=== PATIENT | female | born 1975 | race American Indian/Alaskan Native ===

== ENCOUNTER 2017-06-22 14:34 | Emergency (ER) | payer MEDICAID ==
[2017-06-22] MEDS ORDERED: LORazepam 2 MG/ML SDV IVPUSH ONE (14:53)
[2017-06-22] MEDS ORDERED: Sodium Chloride 0.9% 1,000 ML IV SCH (15:00)
[2017-06-22] MEDS ORDERED: LORazepam 0.5 MG Tab PO ONE (16:33)
[2017-06-22] MEDS ORDERED: Ketorolac 10 MG Tab PO ONE (16:33)
[2017-06-22] MEDS ORDERED: Alum Hydrox/Mag Hydrox/Simeth 15 ML, Lidocaine 2% 15 ML PO ONE ×2 (16:54)
[2017-06-22] MEDS ORDERED: Ondansetron 4 MG Tab.DIS PO ONE (17:28)
[2017-06-22] MEDS ORDERED: Pantoprazole 40 MG Tab.CR ONE (17:40)
--- NOTE | 2017-06-22 17:51 | EDM.PDOC ---
ED HPI GENERAL MEDICAL PROBLEM - General Chief Complaint: Abdominal Pain Stated Complaint: [facility] Time Seen by Provider: 06/22/17 14:50 Source of Information: Reports: Patient, EMS History Limitations: Reports: No Limitations - History of Present Illness INITIAL COMMENTS - FREE TEXT/NARRATIVE: [place] is [place] the [place] today and she was at court and had like a panic attack this pm. Onset: Today Duration: Hour(s): Location: Reports: Abdomen, Other (pt was hyperventilatind and she was nauseated. ) Associated Symptoms: Reports: No Other Symptoms abd Pain Score (Numeric/FACES): 6 - Related Data Allergies Allergy/AdvReac Type Severity Reaction Status Date / Time sumatriptan [From Imitrex] Allergy Difficulty Verified 06/22/17 14:44 Breathing Home Meds: Home Meds Gabapentin [Neurontin] 400 06/22/17 [History] Methadone 5 06/22/17 [History] lamoTRIgine [LaMICtal] 150 06/22/17 [History] Past Medical History [employer] History: Reports: Psychiatric History: Reports: Addiction, Anxiety, Bipolar, Depression, Psych Hospitalization(s) - Infectious Disease History Infectious Disease History: Reports: Hepatitis C - Past Surgical History GI Surgical History: Reports: Cholecystectomy Female Surgical History: Reports: Oophorectomy Social & Family History - Tobacco Use Smoking Status *Q: Current Every Day Smoker Years of Tobacco use: 15 Packs/Tins Daily: 1 - Caffeine Use Caffeine Use: Reports: Coffee ED ROS GENERAL - Review of Systems Review Of Systems: See Below Constitutional: Reports: No Symptoms HEENT: Reports: No Symptoms Respiratory: Reports: No Symptoms Cardiovascular: Reports: Other ( Pt had rt sided chest pain. It hurt when she took a deep breath. ) Endocrine: Reports: No Symptoms GI/Abdominal: Reports: Abdominal Pain, Nausea, Other ( Pt has not vomited since she has been here. ) : Reports: No Symptoms Musculoskeletal: Reports: No Symptoms Skin: Reports: No Symptoms Neurological: Reports: No Symptoms ED EXAM, GI/ABD - Physical Exam Exam: See Below Text/Narrative:: pt arrived talking about pain in the rt lower chest and rt side of the abdoman. She has a history of constipations. She did have a large bm yesterday. Exam Limited By: No Limitations General Appearance: Alert, Other (pt was very anxious and hyperventilating. ) Ears: Normal TMs Nose: Normal Inspection Throat/Mouth: Normal Inspection Head: Atraumatic Neck: Normal Inspection Respiratory/Chest: Other (pt was clearly hyperventilating tonight. ) Cardiovascular: Regular Rate, Rhythm GI/Abdominal Exam: Soft, Other ( mild rt sided tenderness. ) (Female) Exam: Deferred Rectal (Female) Exam: Deferred Back Exam: Normal Inspection Extremities: Normal Inspection Neurological: Alert, Oriented Psychiatric: Anxious, Other (pt admitted to having a panic attack this evening. ) Course - Vital Signs Last Recorded V/S: Last Vital Signs Temp 36.8 C 06/22/17 14:50 Pulse 79 06/22/17 15:53 Resp 16 06/22/17 15:53 BP 116/65 06/22/17 16:34 Pulse Ox 98 06/22/17 16:34 - Orders/Labs/Meds Orders: Active Orders 24 hr Category Date Time Status EKG Documentation Completion [RC] ASDIRECTED Care 06/22/17 14:51 Active Chest 1V Frontal [CR] Stat Exams 06/22/17 14:52 Taken Pantoprazole [ProTONIX] Med 06/23/17 17:27 Once 40 mg PO DAILY ONE Sodium Chloride 0.9% [Normal Saline] 1,000 ml Med 06/22/17 15:00 Active IV ASDIRECTED EKG 12 Lead [EK] Routine Ther 06/22/17 14:51 Ordered Medication Orders Sodium Chloride (Normal Saline) 1,000 mls @ 999 mls/hr IV ASDIRECTED MOUSTAHPA Pantoprazole Sodium (Protonix) 40 mg PO DAILY ONE Stop: 06/23/17 17:28 Last Admin: 06/22/17 17:41 Dose: 40 mg Labs: Laboratory Tests 06/22/17 06/22/17 06/22/17 Range/Units 14:58 14:58 14:58 WBC 7.0 (4.5-11.0) K/uL RBC 4.54 (3.30-5.50) M/uL Hgb 13.9 (12.0-15.0) g/dL Hct 40.4 (36.0-48.0) % MCV 89 (80-98) fL MCH 31 (27-31) pg MCHC 34 (32-36) % Plt Count 189 (150-400) K/uL Neut % (Auto) 75 H (36-66) % Lymph % (Auto) 20 L (24-44) % [place] % (Auto) 4 (2-6) % Eos % (Auto) 0 L (2-4) % Baso % (Auto) 0 (0-1) % Sodium 138 L (140-148) mmol/L Potassium 5.0 (3.6-5.2) mmol/L Chloride 102 (100-108) mmol/L Carbon Dioxide 28 (21-32) mmol/L Anion Gap 13.0 (5.0-14.0) mmol/L BUN 10 (7-18) mg/dL Creatinine 1.0 (0.6-1.0) mg/dL Est Cr Clr Drug Dosing 70.01 mL/min Estimated GFR (MDRD) > 60 (>60) Glucose 129 H (74-106) mg/dL Calcium 9.4 (8.5-10.1) mg/dL Total Bilirubin 0.5 (0.2-1.0) mg/dL AST 11 L (15-37) U/L ALT 29 (12-78) U/L Alkaline Phosphatase 76 (46-116) U/L Troponin I (0.000-0.056) ng/mL Total Protein 7.7 (6.4-8.2) g/dL Albumin 3.9 (3.4-5.0) g/dL Globulin 3.8 H (2.3-3.5) g/dL Albumin/Globulin Ratio 1.0 L (1.2-2.2) Lipase 85 (73-393) U/L Urine Color Urine Appearance Urine pH (4.5-8.0) Ur Specific [place] (1.008-1.030) Urine Protein (NEGATIVE) mg/dL Urine Glucose (UA) (NEGATIVE) mg/dL Urine Ketones (NEGATIVE) mg/dL Urine Occult Blood (NEGATIVE) Urine Nitrite (NEGATIVE) Urine Bilirubin (NEGATIVE) Urine Urobilinogen (NORMAL) mg/dL Ur Leukocyte Esterase (NEGATIVE) Urine RBC (0-5) Urine WBC (0-5) Ur Epithelial Cells Amorphous Sediment Urine Bacteria Urine Mucus Urine HCG, Qual 06/22/17 06/22/17 06/22/17 Range/Units 15:46 15:46 16:48 WBC (4.5-11.0) K/uL RBC (3.30-5.50) M/uL Hgb (12.0-15.0) g/dL Hct (36.0-48.0) % MCV (80-98) fL MCH (27-31) pg MCHC (32-36) % Plt Count (150-400) K/uL Neut % (Auto) (36-66) % Lymph % (Auto) (24-44) % [place] % (Auto) (2-6) % Eos % (Auto) (2-4) % Baso % (Auto) (0-1) % Sodium (140-148) mmol/L Potassium (3.6-5.2) mmol/L Chloride (100-108) mmol/L Carbon Dioxide (21-32) mmol/L Anion Gap (5.0-14.0) mmol/L BUN (7-18) mg/dL Creatinine (0.6-1.0) mg/dL Est Cr Clr Drug Dosing mL/min Estimated GFR (MDRD) (>60) Glucose (74-106) mg/dL Calcium (8.5-10.1) mg/dL Total Bilirubin (0.2-1.0) mg/dL AST (15-37) U/L ALT (12-78) U/L Alkaline Phosphatase (46-116) U/L Troponin I < 0.017 (0.000-0.056) ng/mL Total Protein (6.4-8.2) g/dL Albumin (3.4-5.0) g/dL Globulin (2.3-3.5) g/dL Albumin/Globulin Ratio (1.2-2.2) Lipase (73-393) U/L Urine Color Yellow Urine Appearance Clear Urine pH 7.0 (4.5-8.0) Ur Specific [place] 1.010 (1.008-1.030) Urine Protein Negative (NEGATIVE) mg/dL Urine Glucose (UA) Normal (NEGATIVE) mg/dL Urine Ketones Negative (NEGATIVE) mg/dL Urine Occult Blood Negative (NEGATIVE) Urine Nitrite Negative (NEGATIVE) Urine Bilirubin Negative (NEGATIVE) Urine Urobilinogen Normal (NORMAL) mg/dL Ur Leukocyte Esterase Negative (NEGATIVE) Urine RBC Not seen (0-5) Urine WBC 0-5 (0-5) Ur Epithelial Cells Rare Amorphous Sediment Not seen Urine Bacteria Not seen Urine Mucus Not seen Urine HCG, Qual Negative Meds: Medications Generic Name Dose Route Start Last Admin Trade Name Freayse PRN Reason Stop Dose Admin Sodium Chloride 1,000 mls @ 999 mls/hr 06/22/17 15:00 Normal Saline IV ASDIRECTED MOUSTAPHA Pantoprazole Sodium 40 mg 06/23/17 17:27 06/22/17 17:41 Protonix PO 06/23/17 17:28 40 mg DAILY ONE Administration Discontinued Medications Generic Name Dose Route Start Last Admin Trade Name Freq PRN Reason Stop Dose Admin Al Hydroxide/Mg Hydroxide 15 0 ml 06/22/17 16:54 06/22/17 16:57 ml/ Lidocaine HCl 15 ml PO 06/22/17 16:55 15 ml ONETIME ONE Administration Ketorolac Tromethamine 10 mg 06/22/17 16:33 06/22/17 16:39 Toradol PO 06/22/17 16:34 10 mg ONETIME ONE Administration Lorazepam 0.5 mg 06/22/17 14:53 06/22/17 16:34 Ativan IVPUSH 06/22/17 14:54 Not Given ONETIME ONE Lorazepam 0.5 mg 06/22/17 16:33 06/22/17 16:39 Ativan PO 06/22/17 16:34 0.5 mg ONETIME ONE Administration Ondansetron HCl 4 mg 06/22/17 17:28 06/22/17 17:41 Zofran Odt PO 06/22/17 17:29 4 mg ONETIME ONE Administration Pantoprazole Sodium Confirm 06/22/17 17:40 Protonix Administered 06/22/17 17:41 Dose 40 mg .ROUTE .STK-MED ONE - Re-Assessments/Exams Free Text/Narrative Re-Assessment/Exam: 06/22/17 17:52 pt was given zoforan 4 mg, torodol 10mg, ativan,. 5 mg and protonix 40 mg. She is much more relaxed and her nausea is better. Departure - Departure Time of Disposition: 17:54 Disposition: Home, Self-Care 01 Condition: Fair Clinical Impression: Panic attack, Gastric irritation, Constipation - Discharge Information Referrals: PCP,None [Primary Care Provider] - Care Plan Goals: send a bottle of mag citrate home with the pt, prilosec 20mg daily for 10 days , zoforan 4 mg subling as needed for nausea. - My Orders Last 24 Hours: My Active Orders 06/22/17 14:51 EKG Documentation Completion [RC] ASDIRECTED EKG 12 Lead [EK] Routine 06/22/17 14:52 Chest 1V Frontal [CR] Stat 06/22/17 15:00 Sodium Chloride 0.9% [Normal Saline] 1,000 ml IV ASDIRECTED 06/23/17 17:27 Pantoprazole [ProTONIX] 40 mg PO DAILY ONE - Assessment/Plan Last 24 Hours: My Active Orders 06/22/17 14:51 EKG Documentation Completion [RC] ASDIRECTED EKG 12 Lead [EK] Routine 06/22/17 14:52 Chest 1V Frontal [CR] Stat 06/22/17 15:00 Sodium Chloride 0.9% [Normal Saline] 1,000 ml IV ASDIRECTED 06/23/17 17:27 Pantoprazole [ProTONIX] 40 mg PO DAILY ONE
[2017-06-22] MEDS ORDERED: Magnesium Citrate Solution 296 ML Bottle PO ONE (18:02)
[2017-06-22] MEDS ORDERED: Magnesium Citrate Solution 296 ML Bottle ONE (18:05)
[2017-06-23] MEDS ORDERED: Pantoprazole 40 MG Tab.CR PO ONE (17:27)
--- NOTE | 2017-06-25 09:11 | CR ---
Heart size within normal limits. Slight interstitial thickening which may be chronic. No focal consol idation.
== END 2017-06-22 18:27 | disposition home or self-care (01) ==
LOC: JP.ED 14:34
DX: K31.89 Other diseases of stomach and duodenum (principal); K59.00 Constipation, unspecified; F41.0 Panic disorder [episodic paroxysmal anxiety]; F17.210 Nicotine dependence, cigarettes, uncomplicated; Z88.8 Allergy status to other drugs, medicaments and biological substances
CPT/HCPCS: 36415; 71045; 80053; 81001; 81025; 83690; 84484; 85025; 93005; 99284; A9270

== ENCOUNTER 2017-08-17 15:47 | Emergency (ER) | payer MEDICAID | END 2017-08-17 18:29 | disposition left against medical advice (07) | LOC: JP.ED 15:47 | DX: Z53.21 Procedure and treatment not carried out due to patient leaving prior to being seen by health care provider (principal) ==

== ENCOUNTER 2017-08-21 17:27 | Emergency (ER) | payer MEDICAID ==
[2017-08-21] MEDS ORDERED: Sodium Chloride 0.9% 1,000 ML IV SCH (18:30)
--- NOTE | 2017-08-21 18:46 | EDM.PDOC ---
ED HPI GENERAL MEDICAL PROBLEM - General Chief Complaint: Upper Extremity Injury/Pain Stated Complaint: SWEELING IN HANDS AND LEGS AND FEET Time Seen by Provider: 08/21/17 18:00 Source of Information: Reports: Patient History Limitations: Reports: No Limitations - History of Present Illness INITIAL COMMENTS - FREE TEXT/NARRATIVE: 41-year-old female with redness and swelling of the left hand and both lower extremities. Intermittent fevers, hand is painful, there is also significant widespread joint aching and malaise. It's been bothering her for 5 days, she came in to be seen 2 or 3 days ago but the ER was too busy so she left. No shortness of breath, denies chest pain nausea or vomiting. Onset: Gradual (Over the past 5 days) Location: Reports: Upper Extremity, Left, Lower Extremity, Left, Lower Extremity , Right Severity: Moderate Associated Symptoms: Reports: Fever/Chills, Malaise, Other (Diffuse joint pains) Left Hand Pain Score (Numeric/FACES): 8 - Related Data Allergies Allergy/AdvReac Type Severity Reaction Status Date / Time sumatriptan [From Imitrex] Allergy Difficulty Verified 08/21/17 17:57 Breathing Home Meds: Home Meds Gabapentin [Neurontin] 800 tab PO TID 06/22/17 [History] lamoTRIgine [LaMICtal] 150 tab PO DAILY 06/22/17 [History] Buprenorphine HCl/Naloxone HCl [Suboxone 4 mg-1 mg Sl Film] 8 mg SL DAILY [History] Sulfamethoxazole/Trimethoprim [Sulfatrim 800-160 mg/20 ml Yuridia] 20 ml PO BID [History] Past Medical History HEENT History: Reports: Impaired 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: Neurological History: Reports: Seizure Psychiatric History: Reports: Addiction, Anxiety, Bipolar, Depression, Psych Hospitalization(s) - Infectious Disease History Infectious Disease History: Reports: Chicken Pox - Past Surgical History GI Surgical History: Reports: Appendectomy, Cholecystectomy Female Surgical History: Reports: Oophorectomy Musculoskeletal Surgical History: Reports: Other (See Below) Other Musculoskeletal Surgeries/Procedures:: ankle surgery Social & Family History - Tobacco Use Smoking Status *Q: Current Every Day Smoker Years of Tobacco use: 20 Packs/Tins Daily: 0.5 Used Tobacco, but Quit: No Second Hand Smoke Exposure: Yes - Caffeine Use Caffeine Use: Reports: Coffee, Soda, Tea - Recreational Drug Use Recreational Drug Use: Yes Recreational Drug Type: Reports: Marijuana/Hashish Recreational Drug Use Frequency: Socially Review of Systems - Review of Systems Review Of Systems: See Below Constitutional: Reports: Fever Eyes: Reports: No Symptoms Respiratory: Denies: Shortness of Breath Cardiovascular: Denies: Chest Pain GI/Abdominal: Denies: Abdominal Pain, Nausea, Vomiting Musculoskeletal: Reports: Joint Pain Skin: Reports: Erythema Neurological: Denies: Headache ED EXAM, GENERAL - Physical Exam Exam: See Below Exam Limited By: No Limitations General Appearance: Alert, No Apparent Distress Eye Exam: Bilateral Eye: EOMI Head: Atraumatic Respiratory/Chest: No Respiratory Distress, Lungs Clear Cardiovascular: Regular Rate, Rhythm, Tachycardia Extremities: Other (Patient has diffuse swelling and erythema around the left hand to the wrist. Very tender to palpation. She also has erythema of both lower extremities. Numerous excoriations and pock davis in the skin on the extremities. There is also a superficial abrasion on the left forearm near the swollen hand.) Course - Vital Signs Last Recorded V/S: Last Vital Signs Temp 99.0 F 08/21/17 18:09 Pulse 123 H 08/21/17 18:09 Resp 16 08/21/17 18:09 BP 120/76 08/21/17 18:09 Pulse Ox 98 08/21/17 18:09 - Orders/Labs/Meds Orders: Active Orders 24 hr Category Date Time Status Extremity Non Vascular Lt [US] Stat Exams 08/21/17 19:05 Taken CULTURE BLOOD [BC] Urgent Lab 08/21/17 18:28 Ordered CULTURE BLOOD [BC] Urgent Lab 08/21/17 18:35 Ordered DRUG SCREEN, URINE [URCHEM] Stat Lab 08/21/17 18:34 Ordered UA W/MICROSCOPIC [URIN] Urgent Lab 08/21/17 18:34 Ordered Blood Culture x2 Reflex Set [OM.PC] Urgent Oth 08/21/17 18:17 Ordered Labs: Laboratory Tests 08/21/17 08/21/17 08/21/17 Range/Units 18:34 18:34 18:37 WBC 5.7 (4.5-11.0) K/uL RBC 3.92 (3.30-5.50) M/uL Hgb 12.3 (12.0-15.0) g/dL Hct 37.6 (36.0-48.0) % MCV 96 (80-98) fL MCH 31 (27-31) pg MCHC 33 (32-36) % Plt Count 164 (150-400) K/uL Neut % (Auto) 59 (36-66) % Lymph % (Auto) 29 (24-44) % [place] % (Auto) 7 H (2-6) % Eos % (Auto) 5 H (2-4) % Baso % (Auto) 0 (0-1) % Sodium (140-148) mmol/L Potassium (3.6-5.2) mmol/L Chloride (100-108) mmol/L Carbon Dioxide (21-32) mmol/L Anion Gap (5.0-14.0) mmol/L BUN (7-18) mg/dL Creatinine (0.6-1.0) mg/dL Est Cr Clr Drug Dosing mL/min Estimated GFR (MDRD) (>60) Glucose (74-106) mg/dL Calcium (8.5-10.1) mg/dL Total Bilirubin (0.2-1.0) mg/dL AST (15-37) U/L ALT (12-78) U/L Alkaline Phosphatase (46-116) U/L Total Protein (6.4-8.2) g/dL Albumin (3.4-5.0) g/dL Globulin (2.3-3.5) g/dL Albumin/Globulin Ratio (1.2-2.2) Urine Color Yellow Urine Appearance Clear Urine pH 6.0 (4.5-8.0) Ur Specific [place] 1.025 (1.008-1.030) Urine Protein Negative (NEGATIVE) mg/dL Urine Glucose (UA) Normal (NEGATIVE) mg/dL Urine Ketones Negative (NEGATIVE) mg/dL Urine Occult Blood Negative (NEGATIVE) Urine Nitrite Negative (NEGATIVE) Urine Bilirubin Negative (NEGATIVE) Urine Urobilinogen 1 (NORMAL) mg/dL Ur Leukocyte Esterase Negative (NEGATIVE) Urine RBC 0-5 (0-5) Urine WBC 0-5 (0-5) Ur Epithelial Cells Rare Amorphous Sediment Not seen Urine Bacteria Rare Urine Mucus Not seen Urine Opiates Screen Negative (NEGATIVE) Ur Oxycodone Screen Positive H (NEGATIVE) Urine Methadone Screen Negative (NEGATIVE) Ur Propoxyphene Screen Negative (NEGATIVE) Ur Barbiturates Screen Negative (NEGATIVE) Ur Tricyclics Screen Negative (NEGATIVE) Ur Phencyclidine Scrn Negative (NEGATIVE) Ur Amphetamine Screen Positive H (NEGATIVE) U Methamphetamines Scrn Positive H (NEGATIVE) Urine MDMA Screen Negative (NEGATIVE) U Benzodiazepines Scrn Positive H (NEGATIVE) U Cocaine Metab Screen Negative (NEGATIVE) U Marijuana (THC) Screen Positive H (NEGATIVE) 08/21/17 Range/Units 18:37 WBC (4.5-11.0) K/uL RBC (3.30-5.50) M/uL Hgb (12.0-15.0) g/dL Hct (36.0-48.0) % MCV (80-98) fL MCH (27-31) pg MCHC (32-36) % Plt Count (150-400) K/uL Neut % (Auto) (36-66) % Lymph % (Auto) (24-44) % [place] % (Auto) (2-6) % Eos % (Auto) (2-4) % Baso % (Auto) (0-1) % Sodium 144 (140-148) mmol/L Potassium 4.3 (3.6-5.2) mmol/L Chloride 107 (100-108) mmol/L Carbon Dioxide 28 (21-32) mmol/L Anion Gap 9.4 (5.0-14.0) mmol/L BUN 5 L (7-18) mg/dL Creatinine 0.8 (0.6-1.0) mg/dL Est Cr Clr Drug Dosing 87.51 mL/min Estimated GFR (MDRD) > 60 (>60) Glucose 115 H (74-106) mg/dL Calcium 8.1 L (8.5-10.1) mg/dL Total Bilirubin 0.3 (0.2-1.0) mg/dL AST 13 L (15-37) U/L ALT 42 (12-78) U/L Alkaline Phosphatase 97 (46-116) U/L Total Protein 6.6 (6.4-8.2) g/dL Albumin 3.0 L (3.4-5.0) g/dL Globulin 3.6 H (2.3-3.5) g/dL Albumin/Globulin Ratio 0.8 L (1.2-2.2) Urine Color Urine Appearance Urine pH (4.5-8.0) Ur Specific [place] (1.008-1.030) Urine Protein (NEGATIVE) mg/dL Urine Glucose (UA) (NEGATIVE) mg/dL Urine Ketones (NEGATIVE) mg/dL Urine Occult Blood (NEGATIVE) Urine Nitrite (NEGATIVE) Urine Bilirubin (NEGATIVE) Urine Urobilinogen (NORMAL) mg/dL Ur Leukocyte Esterase (NEGATIVE) Urine RBC (0-5) Urine WBC (0-5) Ur Epithelial Cells Amorphous Sediment Urine Bacteria Urine Mucus Urine Opiates Screen (NEGATIVE) Ur Oxycodone Screen (NEGATIVE) Urine Methadone Screen (NEGATIVE) Ur Propoxyphene Screen (NEGATIVE) Ur Barbiturates Screen (NEGATIVE) Ur Tricyclics Screen (NEGATIVE) Ur Phencyclidine Scrn (NEGATIVE) Ur Amphetamine Screen (NEGATIVE) U Methamphetamines Scrn (NEGATIVE) Urine MDMA Screen (NEGATIVE) U Benzodiazepines Scrn (NEGATIVE) U Cocaine Metab Screen (NEGATIVE) U Marijuana (THC) Screen (NEGATIVE) Meds: Medications Discontinued Medications Generic Name Dose Route Start Last Admin Trade Name Belkis PRN Reason Stop Dose Admin Cefazolin Sodium Confirm 08/21/17 20:05 08/21/17 20:24 Ancef Administered 08/21/17 20:06 Not Given Dose 1 gm .ROUTE .STK-MED ONE Sodium Chloride 1,000 mls @ 500 mls/hr 08/21/17 18:30 08/21/17 18:40 Normal Saline IV 500 mls/hr ASDIRECTED MOUSTAPHA Administration Cefazolin Sodium/Dextrose 1 gm 50 mls @ 100 mls/hr 08/21/17 19:52 08/21/17 20 :24 / Premix IV 08/21/17 20:21 100 mls/hr ONETIME ONE Administration Sodium Chloride Confirm 08/21/17 20:05 08/21/17 20:24 Normal Saline Administered 08/21/17 20:06 Not Given Dose 50 mls @ as directed .ROUTE .STK-MED ONE - Re-Assessments/Exams Free Text/Narrative Re-Assessment/Exam: 08/21/17 18:46 An IV was started and the patient was hydrated with normal saline at 500 mL an hour. Blood cultures were obtained, CBC, CMP and a UA was obtained as well as urine drug screen. There is a high risk of needle source of infection. 08/21/17 20:12 Urine drug screen was positive for oxycodone and methamphetamine. The patient adamantly denied IV drug use, and ultrasound of the hand was obtained and showed no gas or fluid collection. She was given 1 g of Ancef IV and started on cephalexin 500 mg 3 times a day, and a prescription was given for compression stockings and she was encouraged to obtain a regular doctor in the near future. Apparently she does have an appointment coming up on Sunday. She can return sooner if worsening. Departure - Departure Time of Disposition: 20:55 Disposition: Home, Self-Care 01 Condition: Good Clinical Impression: Cellulitis of hand, left, Peripheral edema - Discharge Information Instructions: Cellulitis, Adult Referrals: PCP,None [Primary Care Provider] - Forms: ED Department Discharge Care Plan Goals: Take antibiotic as prescribed, and use compression stockings for leg swelling. Recheck later this week as scheduled. Return sooner if worsening despite treatment. - My Orders Last 24 Hours: My Active Orders 08/21/17 18:17 Blood Culture x2 Reflex Set [OM.PC] Urgent 08/21/17 18:28 CULTURE BLOOD [BC] Urgent 08/21/17 18:34 DRUG SCREEN, URINE [URCHEM] Stat UA W/MICROSCOPIC [URIN] Urgent 08/21/17 18:35 CULTURE BLOOD [BC] Urgent 08/21/17 19:05 Extremity Non Vascular Lt [US] Stat - Assessment/Plan Last 24 Hours: My Active Orders 08/21/17 18:17 Blood Culture x2 Reflex Set [OM.PC] Urgent 08/21/17 18:28 CULTURE BLOOD [BC] Urgent 08/21/17 18:34 DRUG SCREEN, URINE [URCHEM] Stat UA W/MICROSCOPIC [URIN] Urgent 08/21/17 18:35 CULTURE BLOOD [BC] Urgent 08/21/17 19:05 Extremity Non Vascular Lt [US] Stat
[2017-08-21] MEDS: Sodium Chloride 0.9% 50 ML ONE ×2 (20:22→20:24)
[2017-08-21] MEDS: ceFAZolin 1 GM Vial ONE ×2 (20:22→20:24)
[2017-08-21] MEDS: ceFAZolin 1 GM in Premix Bag 1 BAG IV ONE ×2 (20:23→20:24)
--- NOTE | 2017-08-22 09:15 | US ---
Extremity Non Vascular Lt INDICATION: swollen hand, cellulitis, concern for abscess FINDINGS: Ultrasound examination of the left hand demonstrates no evidence for focal fluid collection or abscess. Soft tissue thickening and increased vascularity, consistent with clinical history of ce llulitis. IMPRESSION: No abscess.
== END 2017-08-21 20:56 | disposition home or self-care (01) ==
LOC: JP.ED 17:27
DX: L03.114 Cellulitis of left upper limb (principal); R60.0 Localized edema; F17.210 Nicotine dependence, cigarettes, uncomplicated; F31.9 Bipolar disorder, unspecified; F41.9 Anxiety disorder, unspecified; Z88.8 Allergy status to other drugs, medicaments and biological substances; Z79.899 Other long term (current) drug therapy
CPT/HCPCS: 36415; 76881; 80053; 80305; 81001; 85025; 87040; 96361; 96365; 99284; J0690; J7040; J7030; J7050

== ENCOUNTER 2017-08-29 15:26 | Emergency (ER) | payer MEDICAID ==
--- NOTE | 2017-08-29 16:11 | EDM.PDOC ---
ED HPI GENERAL MEDICAL PROBLEM - General Chief Complaint: General Stated Complaint: LEGS SWOLLEN/NOT FEELING WELL Time Seen by Provider: 08/29/17 16:00 Source of Information: Reports: Patient, Old Records, RN History Limitations: Reports: No Limitations - History of Present Illness INITIAL COMMENTS - FREE TEXT/NARRATIVE: 41 yo female was seen here on 08/21 for cellulitis of the hand and legs. She was given cephalexin and asked to follow up in the clinic. She mistakenly told him she had an appt in a couple days, apparently it was not until the 06 of September. She says her hand is much better now, but her legs continue to be swollen. She does try to keep them up. Her appt coming up will be her first appt with this doctor as she had none in the past. Drug testing on 08/[address] present. No current fevers. No SOB. Is not wearing the compression stockings advised by Dr. Jackson. 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 (see below) (finished antibiotics.) Left Leg Pain Score (Numeric/FACES): 9 - Related Data Allergies Allergy/AdvReac Type Severity Reaction Status Date / Time sumatriptan [From Imitrex] Allergy Difficulty Verified 08/21/17 17:57 Breathing Home Meds: Home Meds Gabapentin [Neurontin] 800 tab PO TID 06/22/17 [History] lamoTRIgine [LaMICtal] 150 tab PO DAILY 06/22/17 [History] Buprenorphine HCl/Naloxone HCl [Suboxone 4 mg-1 mg Sl Film] 8 mg SL DAILY [History] Sulfamethoxazole/Trimethoprim [Sulfatrim 800-160 mg/20 ml Yuridia] 20 ml PO BID [History] Past Medical History HEENT History: Reports: Impaired 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: Neurological History: Reports: Seizure Psychiatric History: Reports: Addiction, Anxiety, Bipolar, Depression, Psych Hospitalization(s) - Infectious Disease History Infectious Disease History: Reports: Chicken Pox - Past Surgical History GI Surgical History: Reports: Appendectomy, Cholecystectomy Female Surgical History: Reports: Oophorectomy Musculoskeletal Surgical History: Reports: Other (See Below) Other Musculoskeletal Surgeries/Procedures:: ankle surgery Social & Family History - Tobacco Use Smoking Status *Q: Heavy Tobacco Smoker Years of Tobacco use: 20 Packs/Tins Daily: 1 - Caffeine Use Caffeine Use: Reports: Coffee, Energy Drinks, Soda - Recreational Drug Use Recreational Drug Use: No ED ROS GENERAL - Review of Systems Review Of Systems: See Below Constitutional: Reports: Malaise HEENT: Reports: Ear Pain (right) Respiratory: Reports: No Symptoms Cardiovascular: Reports: Edema (lower extrems bilat.) GI/Abdominal: Reports: No Symptoms : Reports: No Symptoms Musculoskeletal: Reports: No Symptoms Skin: Reports: No Symptoms Neurological: Reports: No Symptoms ED EXAM, GENERAL - Physical Exam Exam: See Below Exam Limited By: No Limitations General Appearance: Alert, WD/WN, No Apparent Distress Eye Exam: Bilateral Eye: Normal Inspection Ears: Normal External Exam, Normal Canal, Hearing Grossly Normal, Normal TMs, Other (R ear tender with pressure over tragus or traction on pinna) Ear Exam: Right Ear: Tenderness, Bilateral Ear: Auricle Normal, Canal Normal, TM normal Nose: Normal Inspection, Normal Mucosa, No Blood Throat/Mouth: Normal Inspection, Normal Lips, Normal Oropharynx, Normal Voice, No Airway Compromise Head: Atraumatic, Normocephalic Neck: Normal Inspection, Supple, Non-Tender Respiratory/Chest: No Respiratory Distress, Lungs Clear, Normal Breath Sounds, No Accessory Muscle Use Cardiovascular: Regular Rate, Rhythm, No Edema GI/Abdominal: Normal Bowel Sounds, Soft, Non-Tender Extremities: Pedal Edema (trace to both LE's below the knees.). No: Non-Tender Neurological: Alert, Oriented, CN II-XII Intact, Normal Cognition, No Motor/ Sensory Deficits Psychiatric: Normal Affect, Normal Mood Skin Exam: Warm, Dry, Intact, Normal Color, No Rash Course - Vital Signs Last Recorded V/S: Last Vital Signs Temp 36.4 C 08/29/17 15:40 Pulse 85 08/29/17 15:40 Resp 18 08/29/17 15:40 BP 99/49 L 08/29/17 15:40 Pulse Ox 99 08/29/17 15:40 Departure - Departure Time of Disposition: 16:20 Disposition: Home, Self-Care 01 Condition: Fair Clinical Impression: Dependent edema Otitis externa Qualifiers: Otitis externa type: unspecified type Chronicity: acute Laterality: right Qualified Code(s): H60.501 - Unspecified acute noninfective otitis externa, right ear - Discharge Information Referrals: PCP,None [Primary Care Provider] -
== END 2017-08-29 16:28 | disposition home or self-care (01) ==
LOC: JP.ED 15:26
DX: H60.501 Unspecified acute noninfective otitis externa, right ear (principal); R60.9 Edema, unspecified; F41.9 Anxiety disorder, unspecified; F31.9 Bipolar disorder, unspecified; F32.9 Major depressive disorder, single episode, unspecified; Z79.899 Other long term (current) drug therapy; Z88.8 Allergy status to other drugs, medicaments and biological substances
CPT/HCPCS: 99283

== ENCOUNTER 2018-06-16 07:13 | Emergency (ER) | payer MEDICAID ==
--- NOTE | 2018-06-16 07:41 | EDM.PDOC ---
ED HPI GENERAL MEDICAL PROBLEM - General Chief Complaint: ENT Problem Stated Complaint: RIGHT EAR PAIN Time Seen by Provider: 06/16/18 07:20 Source of Information: Reports: Patient History Limitations: Reports: No Limitations - History of Present Illness INITIAL COMMENTS - FREE TEXT/NARRATIVE: 42-year-old female with right ear pain for the past 3 days. She's been using numbing drops which has helped. She also had a recent cold which seems to be improved. Pain radiates from the ear to the right jaw. No hearing deficit, no fevers or chills. No drainage from the ear. She has not been swimming. Duration: Day(s): (3 days) Location: Reports: Other (Right ear) Improves with: Reports: Other (Numbing drops reduces the pain) Associated Symptoms: Reports: Other (Mild cold symptoms which have improved) Right Ear Pain Score (Numeric/FACES): 5 - Related Data Allergies Allergy/AdvReac Type Severity Reaction Status Date / Time sumatriptan [From Imitrex] Allergy Difficulty Verified 01/16/18 17:05 Breathing Home Meds: Home Meds Gabapentin [Neurontin] 800 tab PO TID 06/22/17 [History] lamoTRIgine [LaMICtal] 150 tab PO DAILY 06/22/17 [History] LORazepam 1 mg PO DAILY 01/09/18 [History] Escitalopram Oxalate [Lexapro] 20 mg PO DAILY 01/14/18 [History] Past Medical History HEENT History: Reports: Impaired Vision Gastrointestinal History: Reports: None 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: Musculoskeletal History: Reports: None Neurological History: Reports: Seizure Other Neuro History: one from withdrawal in 2018 Psychiatric History: Reports: Addiction, Anxiety, Bipolar, Depression, Psych Hospitalization(s) - Infectious Disease History Infectious Disease History: Reports: Chicken Pox Other Infectious Disease History: unsure on hep c - Past Surgical History Head Surgeries/Procedures: Reports: None HEENT Surgical History: Reports: None GI Surgical History: Reports: Appendectomy, Cholecystectomy Female Surgical History: Reports: Oophorectomy Neurological Surgical History: Reports: None Musculoskeletal Surgical History: Reports: Other (See Below) Other Musculoskeletal Surgeries/Procedures:: ankle surgery Social & Family History - Tobacco Use Smoking Status *Q: Current Every Day Smoker Years of Tobacco use: 10 Packs/Tins Daily: 1 - Caffeine Use Caffeine Use: Reports: Coffee, Soda - Recreational Drug Use Recreational Drug Use: Yes Recreational Drug Type: Reports: Methamphetamine ED ROS ENT - Review of Systems Review Of Systems: See Below Constitutional: Denies: Fever, Chills HEENT: Reports: Ear Pain, Rhinitis Respiratory: Reports: Cough GI/Abdominal: Denies: Nausea, Vomiting ED EXAM, ENT - Physical Exam Exam: See Below Exam Limited By: No Limitations General Appearance: Alert, No Apparent Distress Eye Exam: Bilateral Eye: EOMI Ears: Normal TMs, Other (Both tympanic membranes are white and appear normal. She has slight erythema of the right ear canal and mild pain with movement of the ear helix.) Head: Atraumatic Respiratory/Chest: No Respiratory Distress, Lungs Clear Course - Vital Signs Last Recorded V/S: Last Vital Signs Temp 96.6 F 06/16/18 07:19 Pulse 102 H 06/16/18 07:19 Resp 16 06/16/18 07:19 BP 149/91 H 06/16/18 07:19 Pulse Ox 97 06/16/18 07:19 - Re-Assessments/Exams Free Text/Narrative Re-Assessment/Exam: 06/16/18 07:39 This appears to be mild otitis externa with possibly a combination of eustachian tube dysfunction. Because the numbing drops help she'll be placed on Cortisporin drops for the next 5-7 days. She should recheck next week if not improving satisfactorily. 06/16/18 07:55 Patient was asking for a syringe to put drops in ear. She also took cotton swabs. As soon as she received these she left without signing or filling her eardrop suscription. This is concerning as she recently was in drug treatment for polysubstance abuse including meth. Departure - Departure Time of Disposition: 07:48 Disposition: Home, Self-Care 01 Condition: Good Clinical Impression: Otitis externa Qualifiers: Otitis externa type: unspecified type Chronicity: acute Laterality: right Qualified Code(s): H60.501 - Unspecified acute noninfective otitis externa, right ear - Discharge Information Instructions: Otitis Externa, [id number] Referrals: PCP,None [Primary Care Provider] - Forms: ED Department Discharge Care Plan Goals: Continue your current medications, continue using numbing drops if helpful and use Cortisporin drops 3 times a day for the next 5-7 days. Consider rechecking at the clinic in 3-4 days if not improving satisfactorily.
== END 2018-06-16 07:38 | disposition home or self-care (01) ==
LOC: JP.ED 07:13
DX: H60.501 Unspecified acute noninfective otitis externa, right ear (principal); F17.210 Nicotine dependence, cigarettes, uncomplicated; Z88.8 Allergy status to other drugs, medicaments and biological substances; Z79.899 Other long term (current) drug therapy
CPT/HCPCS: 99282

== ENCOUNTER 2023-02-11 08:50 | Emergency (ER) | payer MEDICAID | END 2023-02-11 09:23 | disposition left against medical advice (07) | LOC: JP.ED 08:50 | DX: Z53.21 Procedure and treatment not carried out due to patient leaving prior to being seen by health care provider (principal) ==

== ENCOUNTER 2023-02-11 11:20 | Emergency (ER) | payer MEDICAID ==
[2023-02-11] MEDS ORDERED: Sodium Chloride 0.9% 1,000 ML IV ONE (12:30)
[2023-02-11] MEDS ORDERED: Ondansetron 4 MG/2 ML SDV IVPUSH ONE (12:30)
[2023-02-11] MEDS ORDERED: Sodium Chloride 0.9% 10 ML Syringe FLUSH PRN (12:30)
[2023-02-11 12:48] LABS: BASOPHILS PERCENT AUTO 0.2 % (0.1-1.3); EOSINOPHILS ABSOLUTE AUTO 0.03 K/uL (0.00-0.40); EOSINOPHILS PERCENT AUTO 0.5 % (0.0-5.4); HEMATOCRIT 41.4 % (34.3-46.0); HEMOGLOBIN 14.2 g/dL (11.2-15.5); IMMATURE GRAN PERCENT AUTO 0.2 % (0.0-0.7); LYMPHOCYTES ABSOLUTE AUTO 0.68 K/uL (0.8-3.3); LYMPHOCYTES PERCENT AUTO 12.3 % (11.4-47.7); MEAN CORPUSCULAR HEMOGLOBIN 30.9 pg (31.6-35.5); MEAN CORPUSCULAR HGB CONC 34.3 g/dL (31.6-35.5); MEAN CORPUSCULAR VOLUME 90.2 fL (81.4-99.0); MONOCYTES ABSOLUTE AUTO 0.09 K/uL (0.20-0.90); MONOCYTES PERCENT AUTO 1.6 % (3.3-12.6); NEUTROPHILS ABSOLUTE AUTO 4.73 K/uL (1.0-7.6); NEUTROPHILS PERCENT AUTO 85.2 % (40.0-78.1); RED BLOOD CELL COUNT 4.59 M/uL (3.77-5.24); WHITE BLOOD CELL COUNT,WBC 5.6 K/uL (3.2-11.0)
[2023-02-11 13:05] LABS: BASOPHILS ABSOLUTE AUTO 0.01 K/uL (0.00-0.10); IMMATURE GRAN ABSOLUTE AUTO 0.01 K/uL (0.00-0.23); PLATELET COUNT,PLT 114 K/uL (130-375)
[2023-02-11 13:13] LABS: A/G RATIO 0.9 (1.2-2.2); ALANINE AMINOTRANSFERASE,ALT 10 U/L (12-78); ALBUMIN 3.6 g/dL (3.4-5.0); ALKALINE PHOSPHATASE 75 U/L (46-116); ASPARTATE AMNIOTRANSFERASE,AST 13 U/L (15-37); BILIRUBIN TOTAL 0.3 mg/dL (0.2-1.0); BLOOD UREA NITROGEN,BUN 10 mg/dL (7-18); CALCIUM 8.5 mg/dL (8.5-10.1); CARBON DIOXIDE,CO2 26 mmol/L (21-32); CHLORIDE,CL 100 mmol/L (100-108); CREATININE 0.7 mg/dL (0.6-1.0); EST CRCL DRUG DOSING (CG) 94.01 mL/min; ESTIMATED GFR 108 mL/min (>60); GLUCOSE RANDOM 133 mg/dL (74-106); POTASSIUM,K 4.2 mmol/L (3.6-5.2); PROTEIN TOTAL,TP 7.5 g/dL (6.4-8.2); SODIUM,NA 136 mmol/L (140-148); TROPONIN I HIGH SENSITIVITY 5.3 pg/mL (<=60.3)
[2023-02-11 13:16] LABS: ANION GAP 14.2 mmol/L (5.0-14.0)
[2023-02-11] MEDS ORDERED: Alum Hydrox/Mag Hydrox/Simeth 15 ML, Lidocaine 2% 15 ML PO ONE ×2 (13:16)
== END 2023-02-11 14:25 | disposition home or self-care (01) ==
LOC: JP.ED 11:20
DX: R11.2 Nausea with vomiting, unspecified (principal); R10.13 Epigastric pain; F17.210 Nicotine dependence, cigarettes, uncomplicated; Z88.8 Allergy status to other drugs, medicaments and biological substances
CPT/HCPCS: 36415; 80053; 83605; 84484; 85025; 86140; 96361; 96374; 99283; 99284-25; A9270-GY; J2405; J3490; J7030

== ENCOUNTER 2023-12-30 15:02 | Emergency (ER) | payer MEDICAID ==
[2023-12-30 16:25] LABS: APPEARANCE,URINE CLEAR (CLEAR); BILIRUBIN,URINE NEGATIVE (NEGATIVE); COLOR,URINE YELLOW (YELLOW); GLUCOSE,URINE NEGATIVE (NEGATIVE); KETONES,URINE NEGATIVE (NEGATIVE); LEUKOCYTE ESTERASE,URINE NEGATIVE (NEGATIVE); NITRITE,URINE NEGATIVE (NEGATIVE); OCCULT BLOOD,URINE TRACE-LYSED (NEGATIVE); PH,URINE 7.5 (5.0-8.0); PROTEIN,URINE NEGATIVE (NEGATIVE); UROBILINOGEN,URINE 0.2 EU/dL (0.2-1.0)
[2023-12-30 16:42] LABS: WBC,URINE 0-5 (0-5)
[2023-12-30 16:43] LABS: AMORPHOUS SEDIMENT,URINE NOT SEEN; BACTERIA,URINE FEW; EPITHELIAL CELLS,URINE RARE; MUCUS,URINE FEW
[2023-12-30] MEDS ORDERED: Sulfamethoxazole/Trimethoprim 800-160 MG Tab PO ONE (17:11)
== END 2023-12-30 18:30 | disposition home or self-care (01) ==
LOC: JP.ED 15:02
DX: R10.811 Right upper quadrant abdominal tenderness (principal); Z90.49 Acquired absence of other specified parts of digestive tract; F17.210 Nicotine dependence, cigarettes, uncomplicated; Z79.899 Other long term (current) drug therapy; Z88.2 Allergy status to sulfonamides
CPT/HCPCS: 81001; 99283

== ENCOUNTER 2024-05-02 13:10 | Emergency (ER) | payer MEDICAID | END 2024-05-02 15:05 | disposition left against medical advice (07) | LOC: JP.ED 13:10 | DX: Z53.21 Procedure and treatment not carried out due to patient leaving prior to being seen by health care provider (principal) ==